=== PATIENT | female | born 1985 | race American Indian/Alaskan Native ===

== ENCOUNTER 2021-06-26 01:02 | Emergency (ER) | payer OTHER ==
[~2021-06-26] VITALS: Ht 157.5 cm; Wt 117.9 kg
[2021-06-26] MEDS ORDERED: VENTOLIN HFA18 GM INH (01:25)
== END 2021-06-26 01:38 | disposition home or self-care (01) ==
LOC: ED 01:02
DX: J45.901 Unspecified asthma with (acute) exacerbation (principal); Z88.8 Allergy status to other drugs, medicaments and biological substances; Z79.51 Long term (current) use of inhaled steroids
CPT/HCPCS: 99284

== ENCOUNTER 2021-06-29 02:11 | Inpatient (IN) | payer OTHER ==
[~2021-06-29] VITALS: Ht 157.5 cm; Wt 120.2 kg
[~2021-06-29 02:11] MED LIST: VENTOLIN HFA18 GM INH
--- OUTSIDE RECORDS SUMMARY | 2021-06-29 02:14 | XMS ---
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 Piedad has no Care Guidelines for this patient. Johnny VISIT COUNT (12 MO.) [facility] T[facility] NOTE: Visits indicate total known visits. [place] [place]21 02[facility]12 [facility] [place] [facility] COMPLAINT: - SHORTNESS OF BREATH 06/26/2021 01:03 [facility] [place] TYPE: Emergency COMPLAINT: - SOB INPATIENT VISIT TRACKING (12 MO.) No inpatient visits to display in this time frame [email or web address]
--- NOTE | 2021-06-29 06:27 | NUR ---
PT OBTUNDED, NO LONGER ANSWERING QUESTIONS, ONLY AWAKES TO PHYSCIAL STIMULI, ASSESSED BLOOD GAS, RT PLACED PT ON BIPAP DUE TO INCREASED CO2 AND PT MENTAL STATUS AT THE MOMENT. WHEN PT ARRIVED SHE WAS ABLE TO MOVE HERSELF TO HOSPITAL BED BY SLIDING AND WAS ABLE TO ANSWER ORIENTATION QUESTIONS IN 1 WORD SENTENCES.
--- NOTE | 2021-06-29 07:34 | NUR ---
REPORT RECIEVED, CARE OF PT ASSUMED AT THIS TIME. THIS RN AT BEDISDE. PT ON BIPAP, RESPIRATIONS LABORED, BREATHING 20-30 BREATHS PER MINUTE, BELLY BREATHING AND STERNAL RETRACTIONS NOTED. LUNGS TIGHT, EXPIRATORY WHEEZE NOTED. PT REPOSITIONED IN BED AND RT CALLED TO GIVE BREATHING TX. PT TAKEN OFF BIPAP MOMENTARILY TO ANSWER QUESTIONS. SPO2 = 93% ON 4 L. PT REMAINS DROWSY. OPENS EYES TO VOICE AND THEN FALLS BACK ASLEEP. BACK ON BIPAP, RT AT BEDSIDE AT THIS TIME. WILL CONTINUE TO MONITOR.
--- NOTE | 2021-06-29 08:44 | NUR ---
BLOOD DRAWN AND SENT TO LAB BY THIS RN.
--- NOTE | 2021-06-29 09:02 | NUR ---
DR YEBOAH IN ROOM TO ASSESS PT AT THIS TIME. PT REMAINS LETHARGIC, RESPONDS TO PRESSURE AND VOICE BUT FALLS RIGHT BACK ASLEEP. NO NEW ORDERS AT THIS TIME. WILL CONTINUE TO MONITOR.
[2021-06-29] MEDS ORDERED: METHYLPREDNISOLO4 M1 PO (09:33)
--- NOTE | 2021-06-29 09:36 | NUR ---
MENDES CATHETER INSERTED, WELL TOLERATED BY PT. LAB NOW IN ROOM DRAWING BLOOD.
--- NOTE | 2021-06-29 09:48 | NUR ---
IV FLUIDS NOW INFUSING. LABS DRAWN BY LAB. PT REMAINS ON BIPAP SPOE = 98% HEART RATE 110 AT REST. THIS RN WILL CONTINUE TO MONITOR.
--- NOTE | 2021-06-29 10:42 | NUR ---
PT TAKEN TO CT BY FLOAT BRAD BRASHER ON [address] DEPARTMENT AND ON 4 L NC. PT NOW BACK IN BED, BACK ON BIPAP. HEARAT RATE 110-115 AT REST. RESPIRATORY RATE REMAINS 22-28. SPOE = 98% WILL CONTINE TO MONITOR.
--- NOTE | 2021-06-29 12:17 | NUR ---
PT ASSESSMENT COMPLETED. PT REMAINS DROWSY, BUT AWAKENS TO VOICE. A & O X 4, FOLLOWING DIRECTIONS. RESPIRATIONS REMAIN LABORED, RR = 26. EXPIRATORY WHEEZES NOTED IN ALL AIR CAVAZOS. PT TAKEN OFF BIPAP, PLACED ON NC AT 2 L. SPOE = 95% HEART RATE REMAINS 110. ABDOMINAL MOVEMENT NOTED WITH INSPIRATION AND EXPIRATION. IV FLUIDS CONTINUE TO INFUSE, CALL LIGHT WITHIN REACH. WILL CONTINUE TO MONITOR.
--- NOTE | 2021-06-29 14:00 | NUR ---
PT TALKED TO FATHER ON CELL PHONE AND DRANK A CUP OF WATER. STATES SHE IS FEELING BETTER. ASSISTED PT WITH REPOSITIONING IN THE BED. RESPIRATIONS STILL LABORED. IV FLUIDS CONTINUE TO INFUSE. WILL CONTINUE TO MONITOR.
--- NOTE | 2021-06-29 16:13 | NUR ---
ASSESSMENT COMPLETED. PT UP TO RECLINER. ONE PERSON ASSIST REQUIRED. PT STEADY ON FEET. HEART RATE AT 110-115 WITH EXERTION. PT CONTINUES TO HAVE AUDIBLE EXPIRATORY WHEEZE. RR = 22-26 AT REST. PT DIET ADVANCED, PT AWAKE IN CHAIR WATCHING TELEVISION. IV FLUIDS INFUSING. PT VERBALIZED UNDERSTANDING OF EVENING PLAN OF CARE. CALL LIGHT WITHIN REACH. WILL CONTINUE TO MONITOR.
--- NOTE | 2021-06-29 17:54 | NUR ---
PT NOW BACK IN BED. RESPIRATORY RATE AT 30, PLACED BACK ON BIPAP AT THIS TIME. IV FLUIDS INFUSING, CALL LIGHT WITHIN REACH. WILL CONTINUE TO MONITOR.
--- NOTE | 2021-06-29 19:58 | NUR ---
RN ARRIVED TO SHIFT, RECIEVED REPORT DAYSHIFT, REVIEWED ORDERS, LABS, EMAR, HEAD TO TOE ASSESSMENT COMPLETED, RT IN WITH PT WELL. PT STILL VERY LETHERAGIC, AWAKES TO VERBAL STIMULI, PT SATS IN LOW 90S, BIPAP PLACED ON PT, PT TOLERATING WELL, WILL CONTINUE TO CLOSELY MONITOR
--- NOTE | 2021-06-29 20:40 | NUR ---
PT AWOKE, ANXIOUS, REQUESTING BIPAP BE REMOVED, BIPAP REMOVED, PT GIVEN WATER, EDUCATION PROVIDED REGARDING USE OF BIPAP AND HOW ITS HELPING THE PT, PT AGREEABLE TO WEAR IT IF SHE CAN HAVE A SMALL BREAK. NASAL CANULA WITH END TIDAL PLACED ON PT AT 4 LPM, ETCO2 32-34, WILL NOTIFY RT OF PT CHANGE
--- NOTE | 2021-06-29 23:24 | NUR ---
URINE OUTPUT DECREASED OVER PAST 3 HOURS, DR YEBOAH NOTIFIED, PER DR YEBOAH INCREASE FLUIDS TO 125 ML/HR, INCREASED FLUIDS, WILL CONITNUE TO CHECK HOURLY OUTPUT
--- NOTE | 2021-06-30 00:19 | NUR ---
PT AWAKE, ABLE TO HOLD CONVERSATION, REQUESTING SNACKS AND DRINKS, RT WITH PT WELL, CURRENTLY ON 3 LPM 02 VIA N/C, PT STATES SHES FEELING MUCH BETTER, PT A&OX4, FORGETFULL OF TODAYS EVENTS HOWEVER APPROPIATE, WILL CONTINUE TO MONITOR RESPIRATORY AND MENTAL STATUS
--- NOTE | 2021-06-30 01:42 | NUR ---
PT AWAKE AND ALERT, EATING AND DRINKING SNACKS, STATES SHE FEELS MUCH BETTER, JUST TIRED, ADDITIONAL SNACKS GIVEN TO PT
--- NOTE | 2021-06-30 02:28 | NUR ---
PT C/O HEADACHE, NIO TYLENOL ORDERED AND GIVEN PER MAR
--- NOTE | 2021-06-30 06:43 | NUR ---
PT MORE ALERT AND EASILY AROUSABLE THROUGHOUT NIGHT, THIS AM IS MORE LETHARGIC HOWEVER STILL AROUSES, LR GTT REMAINS INFUSING, VITALS WNL, NO LABS TO REVIEW THIS AM, WILL INFORM DAY SHIFT OF NO AM LABS, PT REMAINED ON BIPAP FOR APROX 1 HOUR LAST NIGHT, OXYGEN VIA N/C AT 3 LPM MAINTAINS SATS BETWEEN 93-96%, PT WAS ABLE TO EAT AND DRINK LAST NIGHT, AWAITING DAY SHIFT TO GIVE HAND OFF REPORT
--- NOTE | 2021-06-30 07:20 | NUR ---
REPORT RECEIVED, CARE OF PT ASSUMED AT THIS TIME. PT RESTING IN BED ON 3 L NC. SPO2=92%. BREATHING EVEN BUT LABORED. HEART RATE 110 AT REST. CALL LIGHT WITHIN REACH. WILL CONTINUE TO MONITOR.
--- NOTE | 2021-06-30 07:46 | NUR ---
ASSESSMENT COMPLETED AT THIS TIME. PT ASSISTED FROM BED TO CHAIR AT THIS TIME. LUNGS SOUND CLEAR AND DIM IN BILATERAL LUNG BASES. RESPIRATIONS CONTINUE TO BE LABORED, WITH RR INCREASING INTO THE 30S WITH EXERTION. PLAN OF CARE FOR DAY ESTABLISHED. RT IN ROOM GIVING BREATHING TX. CALL LIGHT WITHIN REACH. WILL CONTINUE TO MONITOR.
--- NOTE | 2021-06-30 08:02 | NUR ---
PT AMBULATED TO BATHROOM TO HAVE A BOWEL MOVEMENT. HEART RATE UP INTO THE 120S. SPO2 = 87% ON 2 L NC WITH AMBULATION. PT NOW BACK IN RECLINER. ON 2 L NC. SPO2 = 90%. RECOVERING WELL. POLICY INTERN IN ROOM, CALL LIGHT WITHIN REACH.
--- NOTE | 2021-06-30 08:05 | NUR ---
RT IN FOR BREATHING TREATMENT, PATIENT REQUESTED ASSISTANCE TO BR FOR BM. BACK TO CHAIR FOR BREAKFAST.
--- NOTE | 2021-06-30 08:20 | NUR ---
ASSESSMENT AND MEDICATION ADMINISTRATION COMPLETED. PT ALERT AND ORIENTED, ANSWERING ALL QUESTIONS APPROPRIATELY. PT DENIES PAIN OR NAUSEA. CALL LIGHT WITHIN REACH. DENIES FURTHER NEEDS AT THIS TIME.
--- NOTE | 2021-06-30 09:20 | NUR ---
IN ROOM WITH DR YEBOAH AT THIS TIME. PLAN ESTABLISHED TO DC MENDES CATHETER AND IV FLUIDS. ALL PT QUESTIONS ANSWERED. CALL LIGHT WITHIN REACH. WILL CONTINUE TO MONITOR.
--- NOTE | 2021-06-30 09:42 | NUR ---
PT BREAKER OPERATOR, MENDES, AND IV FLUIDS DC'D. PT RESTING IN RECLINER, CALL LIGHT WITHIN REACH. NO FURTHER NEEDS AT THIS TIME.
--- NOTE | 2021-06-30 11:18 | NUR ---
PT AMBULATED IN THE HALLWAY. SPO2 MAINTAINED OVER 94% WITH AMBULATION. PT DENIES SHORTNESS OF BREATH. HR DID INCREASE INTO THE 120S, BUT BACK DOWN TO 110 AT REST. ASSESSMENT UNCHANGED, CALL LIGHT WITHIN REACH. WILL CONTINUE TO MONITOR.
--- NOTE | 2021-06-30 12:18 | NUR ---
ASSISTED PATIENT TO BR. VOID AND LIQUID STOOL. MESH UNDERWEAR PROVIDED. PATIENT NOW IN RECLINER, FRESH WATER , SPRITE AND APPLE JUICE PROVIDED
--- NOTE | 2021-06-30 13:25 | NUR ---
REPORT CALLED TO RN ON MEDICAL FLOOR. PT AMBULATED TO ROOM 124 WITH STAND BY ASSIST. ALL BELONGINGS TRANSFERED WITH PT.
--- NOTE | 2021-06-30 13:25 | NUR ---
Pt transferred to med surg room 124. She is independent to BR to void, back to bed and VSS on RA. Slight SOB after exertion. Pt saline locked, IV site WNL. Discussed plan of care moving forward and patient is agreeable. Oriented to call light/room.
--- NOTE | 2021-06-30 14:45 | NUR ---
Per report patient requesting to shower in CCU, offered and set up shower for patient who requests to "take a nap" before showering. Scheduled medications administered, warm blankets provided. Pt has no needs at this time, made plans for ambulation and shower later in day.
--- NOTE | 2021-06-30 14:51 | NUR ---
Medications reconciled
--- NOTE | 2021-06-30 15:05 | NUR ---
medications reconciled
--- NOTE | 2021-06-30 17:30 | NUR ---
Patient sitting up in bed eating dinner and states no needs at this time
--- NOTE | 2021-06-30 18:25 | NUR ---
Pt up in shower indepedently, steady gait, denies needs, instructed to use call light if needed and she verbalizes understanding
--- NOTE | 2021-06-30 19:06 | NUR ---
PATIENT WANTED TO SHOWER. SHOWER SET UP AND PATIENT INDEPENDENT IN SHOWER. VITALS AND I&O'S CHARTED. CALL LIGHT IN REACH. NO FURTHER NEEDS AT THIS TIME.
--- NOTE | 2021-06-30 19:59 | NUR ---
RECEIVED REPORT FROM DAY SHIFT RN. PATIENT IS RESTING IN BED WITH EYES CLSOED, RR 15. CALL LIGHT IN REACH.
--- NOTE | 2021-06-30 20:20 | NUR ---
GAVE PT A PROTEIN PACK AND CHIPS TO EAT
--- NOTE | 2021-06-30 20:46 | NUR ---
PATIENT ASSESMENT COMPLETED. PATIENT REPORTS A HEADACHE. PRN TYLENOL GIVEN PER ORDER. PATIENTS IV IS SL AND IV FLUSHES WELL. PATIENTS VITALS TAKEN AND RECORDED. INTAKE AND OUTPUT RECORDED. PATIENT DENIES ANY FURTHER NEEDS. CALL LIGHT IN REACH.
--- NOTE | 2021-06-30 21:12 | NUR ---
PT REQUESTED TO WALK, IS CURRENTLY WALKING THE UNIT. INSTRUCTED WHERE SHE IS ABLE TO WALK ON THE UNIT.
--- NOTE | 2021-06-30 21:28 | NUR ---
BACK TO HER ROOM, SNACKS PROVIDED, RYLAN CRACKERS, PEANUT BUTTER, JELLO, YOGURT, FRESH ICE WATER. NO OTHER NEEDS AT THIS TIME.
--- NOTE | 2021-06-30 22:51 | NUR ---
PATIENTS SCHEDULED MEDICATION GIVEN PER ORDER. PATIENT ATE 100% OF SNACK. PATIENT DENIES ANY NEEDS. CALL LIGHT IN REACH.
--- NOTE | 2021-07-01 00:44 | NUR ---
PATIENT IS RESTING IN BED WITH EYES CLSOED, RR 18. CALL LIGHT IN REACH.
--- NOTE | 2021-07-01 03:07 | NUR ---
PATIENT PROVIDED WITH ICE WATER AND SODA PER REQUEST. PATIENT DENIES ANY FURTHER NEEDS. CALL LIGHT IN REACH.
--- NOTE | 2021-07-01 03:50 | NUR ---
RT IN TO ADMINISTER NEB. PATIENT REMAINS ON RA. NO NEEDS NOTED. CALL LIGHT IN REACH.
--- NOTE | 2021-07-01 05:34 | NUR ---
PATIENTS VITALS TAKEN AND RECORDED. PATIENT UP TO BR AND ABLE TO VOID. PATIENTS INTAKE AND OUTPUT RECORDED. PATIENTS SCHEDULED MEDICATION GIVEN PER ORDER. PATIENT REPORTS A HEADACHE, PRN TYLENOL GIVEN PER ORDER. PATIENT DENIES ANY FURTHER NEEDS. CALL LIGHT IN REACH.
--- NOTE | 2021-07-01 07:10 | NUR ---
Report received from Kae SALINAS. Pt resting in bed with eyes closed, on room air, no needs identified at this time. Will continue plan of care.
--- NOTE | 2021-07-01 08:22 | NUR ---
Assessment complete. pt resting in chair with eyes closed and awakens to voice. She states no SOB, slight pain with headache, made plan for PRN tylenol when available. Lung sounds clear in uppers, occasional exp wheeze heard in bases, diminished. Occasional cough noted. IV flushed WNL. Pt up and walking in hallway.
--- NOTE | 2021-07-01 08:30 | NUR ---
Spoke with Nedra. She states she lives with her dad and plans on going home with him. She does drive or work at this time. Mom will drive her home and family will assist her if needed. She sees Dr Guzmán at [facility]. Pt denies needs and wants to go home.
--- NOTE | 2021-07-01 10:32 | NUR ---
IN TO DO VITALS AND I&O'S. PATIENT SET UP FOR SHOWER AND IS INDEPENDENT. FRESH WATER GIVEN. CALL LIGHT IN REACH. NO FURTHER NEEDS AT THIS TIME.
[2021-07-01] MEDS ORDERED: PREDNISONE20 MG PO (10:55)
--- NOTE | 2021-07-01 11:20 | NUR ---
Discharge teaching provided to patient who verbalizes understanding and has no questions. IV removed WNL. All personal belongings returned. RX and RX instructions provided. Pt A+O, dresses self, VSS.
--- NOTE | 2021-07-01 15:20 | NUR ---
Attempted to schedule appt with Dr. Guzmán nurse. Unable to contact. Left message with pts phone number requesting they schedule her for a fu visit with in 7-10 days.
--- NOTE | 2021-07-01 16:24 | NUR ---
Received return call from Rosa at [facility]. She will schedule pt and also let me know she kept her scheduled appt at 3 pm today with her OBGYN at [facility]. Rosa will call and schedule her.
== END 2021-07-01 11:50 | disposition home or self-care (01) | DRG 202 ==
LOC: ED 02:11 → CCU 04:11 → MS 06-30 13:25
PROVIDERS: ADMIT Internal Medicine; ATTEND Internal Medicine
DX: J45.41 Moderate persistent asthma with (acute) exacerbation (principal); J96.02 Acute respiratory failure with hypercapnia; G92.8 Other toxic encephalopathy; Z68.42 Body mass index [BMI] 45.0-49.9, adult; T43.621A Poisoning by amphetamines, accidental (unintentional), initial encounter; E66.01 Morbid (severe) obesity due to excess calories; R40.0 Somnolence; Z88.8 Allergy status to other drugs, medicaments and biological substances
CPT/HCPCS: 36415; 36600; 71045; 71260; 80048; 82553; 82803; 83605; 83880; 85025; 94640; 94660; 94760; 96365; 96375; 99285-25; A9270; C9803; G0480; J1100; J1650; J2060; J2920; J2930; J3475; J7121; Q9967; U0003

== ENCOUNTER 2021-11-27 21:47 | Emergency (ER) | payer OTHER ==
[~2021-11-27] VITALS: Ht 157.5 cm; Wt 119.8 kg
[~2021-11-27 21:47] MED LIST changes: +METHYLPREDNISOLO4 M1 PO; +PREDNISONE20 MG PO
[2021-11-28] MEDS ORDERED: AZITHROMYCIN500 MG PO (00:23)
[2021-12-03] MEDS ORDERED: SYMBICORT 16010.2 GM INH (12:53)
[2021-12-03] MEDS ORDERED: PREDNISONE20 MG PO (12:54)
== END 2021-11-28 01:02 | disposition home or self-care (01) ==
LOC: ED 21:47
DX: J45.901 Unspecified asthma with (acute) exacerbation (principal); Z20.822 Contact with and (suspected) exposure to COVID-19; Z88.8 Allergy status to other drugs, medicaments and biological substances
CPT/HCPCS: 71045; 87502; 94640; 96372; 99285-25; C9803; J1100; U0003

== ENCOUNTER 2022-06-29 04:01 | Emergency (ER) | payer OTHER ==
[~2022-06-29] VITALS: Ht 157.5 cm; Wt 120.5 kg
[~2022-06-29 04:01] MED LIST changes: +ALBUTEROL2.5 MG/3 M INH; +AZITHROMYCIN500 MG PO; +SYMBICORT 16010.2 GM INH
== END 2022-06-29 06:03 | disposition home or self-care (01) ==
LOC: ED 04:01
DX: J45.901 Unspecified asthma with (acute) exacerbation (principal); Z88.8 Allergy status to other drugs, medicaments and biological substances; Z79.899 Other long term (current) drug therapy
CPT/HCPCS: 36415; 71045; 80053; 83735; 84484; 84703; 85025; 94644; 96374; 99285-25; J2930

== ENCOUNTER 2022-07-15 12:48 | Emergency (ER) | payer OTHER ==
[~2022-07-15] VITALS: Ht 157.5 cm; Wt 108.9 kg
--- OUTSIDE RECORDS SUMMARY | 2022-07-15 12:55 | XMS ---
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 Piedad has no Care Guidelines for this patient. [facility]12 MO.) [facility] NOTE: Visits indicate total known visits. [place] [place] (12 MO.) 07/15/2022 12:[address] [facility] [address] 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 - Allergy status to other drugs, medicaments and biological substances - Unspecified asthma with (acute) exacerbation - Shortness of breath 05/03/2022 12:49 [facility] [place] TYPE: Emergency COMPLAINT: - SHORTNESS OF BREATH DIAGNOSES: - Shortness of breath - Unspecified asthma with (acute) exacerbation - Allergy status to other drugs, medicaments and biological substances - Other group home (current) drug therapy - Contact with and (suspected) exposure to COVID-19 12/02/2021 12:49 [facility] [place] TYPE: Emergency COMPLAINT: - DIFFICULTY BREATHING 11/27/2021 21:48 [facility] [place] TYPE: Emergency COMPLAINT: - COUGH, CONGESTION, SOB DIAGNOSES: - Unspecified asthma with (acute) exacerbation - Shortness of breath - Allergy status to other drugs, medicaments and biological substances - Contact with and (suspected) exposure to COVID-19 INPATIENT VISIT TRACKING (12 MO.) 12/02/2021 12:50 [facility] [place] TYPE: Observation COMPLAINT: - ASTHMA EXACERBATION DIAGNOSES: - Moderate persistent asthma with (acute) exacerbation - Allergy status to other antibiotic agents - Contact with and (suspected) exposure to COVID-19 - Somnolence - Allergy status to other drugs, medicaments and biological substances [email or web address]
[2022-07-15] MEDS ORDERED: PREDNISONE20 MG PO (13:50)
[2022-07-15] MEDS ORDERED: VENTOLIN HFA18 GM INH (13:50)
== END 2022-07-15 14:45 | disposition home or self-care (01) ==
LOC: ED 12:48
DX: J96.00 Acute respiratory failure, unspecified whether with hypoxia or hypercapnia (principal); J45.901 Unspecified asthma with (acute) exacerbation; Z88.8 Allergy status to other drugs, medicaments and biological substances; Z20.822 Contact with and (suspected) exposure to COVID-19
CPT/HCPCS: 36415; 71045; 80048; 82803; 85025; 87502; 94640; 96365; 96375; 99285-25; C9803; J2930; J3475; U0003

== ENCOUNTER 2024-04-18 10:30 | Emergency (ER) | payer OTHER ==
[~2024-04-18] VITALS: Ht 157.5 cm; Wt 110.4 kg
[2024-04-18] MEDS ORDERED: HYDROCODON-ACE1 EA10 PO (11:23)
[2024-04-18 11:28] VITALS: BP 119/88
== END 2024-04-18 11:28 | disposition home or self-care (01) ==
LOC: ED 10:30
DX: M25.531 Pain in right wrist (principal); J45.909 Unspecified asthma, uncomplicated; Z88.1 Allergy status to other antibiotic agents; Z88.8 Allergy status to other drugs, medicaments and biological substances; Z79.899 Other long term (current) drug therapy
CPT/HCPCS: 99283

== ENCOUNTER 2024-11-12 17:35 | Emergency (ER) | payer OTHER ==
[~2024-11-12] VITALS: Ht 157.5 cm; Wt 113.9 kg
[~2024-11-12 17:35] MED LIST changes: +HYDROCODON-ACE1 EA10 PO
[2024-11-12 21:27] VITALS: BP 134/92
[2024-11-12] MEDS ORDERED: DOXYCYCLINE HYCLATE 100 MG HOME.PACK PO ONE (21:30)
== END 2024-11-12 21:28 | disposition home or self-care (01) ==
LOC: ED 17:35
DX: S90.821A Blister (nonthermal), right foot, initial encounter (principal); L08.9 Local infection of the skin and subcutaneous tissue, unspecified; J45.909 Unspecified asthma, uncomplicated; X50.9XXA Other and unspecified overexertion or strenuous movements or postures, initial encounter; Z79.899 Other long term (current) drug therapy; Z88.8 Allergy status to other drugs, medicaments and biological substances
CPT/HCPCS: 99283; A9270